=== PATIENT | male | born 1975 | race Caucasian/White ===

== ENCOUNTER → 2017-10-19 | Outpatient (CLI) | payer OTHER, MEDICAID | LOC: FIMAGING 10:28 | PROVIDERS: ATTEND Psychiatry & Neurology Neurology | DX: G40.909 Epilepsy, unspecified, not intractable, without status epilepticus (principal); G93.5 Compression of brain; G93.89 Other specified disorders of brain; Z98.2 Presence of cerebrospinal fluid drainage device ==